=== PATIENT | female | born 1990 ===

== ENCOUNTER 2018-04-03 08:53 | Emergency (ER) | payer OTHER ==
[~2018-04-03] VITALS: Ht 160 cm; Wt 63.5 kg
== END 2018-04-03 12:57 | disposition home or self-care (01) ==
LOC: ER 08:53
DX: S60.032A Contusion of left middle finger without damage to nail, initial encounter (principal); S60.042A Contusion of left ring finger without damage to nail, initial encounter; W23.0XXA Caught, crushed, jammed, or pinched between moving objects, initial encounter; Y93.89 Activity, other specified; Y92.89 Other specified places as the place of occurrence of the external cause; Y99.8 Other external cause status